=== PATIENT | male | born 1980 | race African-American/Black ===

== ENCOUNTER 2016-08-03 10:13 | Emergency (ER) | payer SELFPAY ==
[~2016-08-03] VITALS: Ht 190.5 cm; Wt 154.2 kg
[2016-08-03 10:15] VITALS: BP 144/98
[2016-08-03] MEDS ORDERED: CYCL10TA2 PO (10:52)
--- NOTE | 2016-08-03 10:53 | PHYS DOC ---
Past Medical History Past Medical History: Asthma Past Surgical History: Cholecystectomy Additional Information: 2 cigarettes daily Alcohol Use: Occasionally Drug Use: Marijuana Adult General Chief Complaint Chief Complaint: MECHANICAL FALL [facility] HPI Patient is a 36 year old male presents to the emergency department with a history of falling on the wet grass today. She states that he did hit his head although he denies any loss of consciousness. He denies any neck pain and breast pain or lumbar spine pain does have pain on bilateral lower back area. Patient denies any numbness or tingling down to her lower extremities. He denies any loss of bowel or bladder. Patient's able to ambulate with a good steady gait. Review of Systems Review of Systems Constitutional: Denies fever or chills [] Eyes: Denies change in visual acuity, redness, or eye pain [] HENT: Denies nasal congestion or sore throat [] Respiratory: Denies cough or shortness of breath [] Cardiovascular: No additional information not addressed in HPI [] GI: Denies abdominal pain, nausea, vomiting, bloody stools or diarrhea [] : Denies dysuria or hematuria [] Musculoskeletal: low back pain denies joint pain [] Integument: Denies rash or skin lesions [] Neurologic: Denies headache, focal weakness or sensory changes [] Allergies Allergies Allergies Coded Allergies Type Severity Reaction Last Updated Verified No Known Drug Allergies 07/09/15 No Physical Exam Physical Exam Constitutional: Well developed, well nourished, no acute distress, non-toxic appearance. [] HENT: Normocephalic, atraumatic, bilateral external ears normal, oropharynx moist, no oral exudates, nose normal. [] Eyes: PERRLA, EOMI, conjunctiva normal, no discharge. [] Neck: Normal range of motion, no tenderness, supple, no stridor. [] Cardiovascular:Heart rate regular rhythm, no murmur [] Lungs & Thorax: Bilateral breath sounds clear to auscultation [] Skin: Warm, dry, no erythema, no rash. [] Back: No cervical spine, thoracic spine or lumbar spine tenderness, no crepitus no deformities no step-offs noted. Extremities: No tenderness, no cyanosis, no clubbing, ROM intact, no edema. Patient was able to do straight leg raise without any difficulty. Patient was also able to cross legs with no difficulty. Patient with peripheral pulses 2+. Neurologic: Alert and oriented X 3, normal motor function, normal sensory function, no focal deficits noted. [] Psychologic: Affect normal, judgement normal, mood normal. [] Current Patient Data Vital Signs Vital Signs Date Time Temp Pulse Resp B/P Pulse Ox O2 Delivery O2 Flow Rate FiO2 08/03/16 10:15 98.2 81 20 144/98 97 Room Air 98.2 EKG EKG [] Radiology/Procedures Radiology/Procedures [] Course & Med Decision Making Course & Med Decision Making Pertinent Labs and Imaging studies reviewed. (See chart for details) Patient will be discharged home in stable condition signs symptoms to return back to emergency department been provided. Patient was encouraged to use ibuprofen that he has a home for pain and discomfort. He'll be provided with Flexeril for muscle spasms. He was instructed this medication will cause drowsiness do not take any be alert and oriented. Patient agrees with discharge instructions, treatment regimens and follow-up recommendations. Since symptoms to return back to emergency department provided. Dragon Disclaimer Dragon Disclaimer This electronic medical record was generated, in whole or in part, using a voice recognition dictation system. Departure Departure Impression: Primary Impression: Fall Additional Impression: Low back pain Disposition: 01 HOME, SELF-CARE Condition: STABLE Referrals: NO PCP (PCP) Patient Instructions: Back Exercises, [id number], Back Pain, Adult, Easy-to- Read, Fall Prevention and Home Safety, [id number] Additional Instructions: Activity as tolerated. Continue your ibuprofen you have at home for pain and discomfort. Flexeril as needed for muscle spasms this medication will cause drowsiness do not take any be alert and oriented. Ice packs on 20 minutes off 20 minutes several times a day. Follow-up to primary care physician next 7-10 days. Return back to emergency prior signs symptoms of become worse. Scripts Cyclobenzaprine Hcl 10 Mg [id number] Mg PO TID PRN MUSCLE SPASMS #30 TAB Prov:DAISY AVILA APRN 08/03/16 Problem Qualifiers DAISY AVILA APRN Aug 03, 2016 10:52
[2016-08-03] MEDS ORDERED: IBUPROFEN 800 MG TABLET. PO ONE ×2 (11:14→11:30)
[2016-08-03] MEDS ORDERED: CYCLOBENZAPRINE 10 MG TABLET. PO ONE (11:30)
== END 2016-08-03 11:14 | disposition home or self-care (01) ==
LOC: ER 10:13
DX: M54.5 Low back pain (principal); J45.909 Unspecified asthma, uncomplicated; F17.210 Nicotine dependence, cigarettes, uncomplicated; F12.10 Cannabis abuse, uncomplicated; Z90.49 Acquired absence of other specified parts of digestive tract; W19.XXXA Unspecified fall, initial encounter; Y93.89 Activity, other specified; Y99.8 Other external cause status; Y92.89 Other specified places as the place of occurrence of the external cause
CPT/HCPCS: 99284

== ENCOUNTER 2017-01-03 13:35 | Emergency (ER) | payer BC ==
[~2017-01-03] VITALS: Ht 190.5 cm; Wt 142.9 kg
[~2017-01-03 13:35] MED LIST: CYCL10TA2 PO
[2017-01-03 13:51] VITALS: BP 122/77
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
[2017-01-03] MEDS ORDERED: NAPROXEN 500 MG TABLET PO ONE (14:30)
[2017-01-03] MEDS ORDERED: CYCLOBENZAPRINE 10 MG TABLET. PO ONE (14:30)
[2017-01-03] MEDS ORDERED: TRAM-48 PO (14:30)
[2017-01-03] MEDS ORDERED: HYDROcodone/APAP 5/325MG 1 TAB TABLET PO ONE (14:30)
[2017-01-03] MEDS ORDERED: HYDR12.58 PO (14:30)
[2017-01-03] MEDS ORDERED: METH-37 PO (14:30)
== END 2017-01-03 14:41 | disposition home or self-care (01) ==
LOC: ER 13:35
DX: R60.0 Localized edema (principal); G89.29 Other chronic pain; M54.5 Low back pain; M79.671 Pain in right foot; J45.909 Unspecified asthma, uncomplicated
CPT/HCPCS: 99284

== ENCOUNTER 2018-10-02 22:37 | Emergency (ER) | payer BC, SELFPAY ==
[~2018-10-02] VITALS: Ht 190.5 cm; Wt 147.0 kg
[~2018-10-02 22:37] MED LIST changes: +HYDR12.58 PO; +METH-37 PO; +TRAM-48 PO
[2018-10-02 23:40] VITALS: BP 147/95
[2018-10-02] MEDS ORDERED: CYCL10TA2 PO (23:57)
[2018-10-02] MEDS ORDERED: HYDR-3164 PO (23:57)
--- NOTE | 2018-10-02 23:58 | PHYS DOC ---
Past Medical History Past Medical History: No Pertinent History, Asthma (MADAN PAREKH APRN) Past Surgical History: Cholecystectomy (MADAN PAREKH APRN) Smoking: Cigarettes, Less than 1pk/day Additional Information: 05/06-05/04 PPD Alcohol Use: Occasionally Drug Use: Marijuana (MADAN PAREKH APRN) Adult General Chief Complaint Chief Complaint: LOWER BACK PAIN OR INJURY HPI HPI Patient is a 38 year old who presents with right lower back pain that radiates down his right leg that started this morning. Patient had pain like this several years ago. Rates his pain as 10 out of 10 has not tried anything at home with exception ibuprofen. (MADAN PAREKH APRN) Review of Systems Review of Systems Constitutional: Denies fever or chills [] Eyes: Denies change in visual acuity, redness, or eye pain [] HENT: Denies nasal congestion or sore throat [] Respiratory: Denies cough or shortness of breath [] Cardiovascular: No additional information not addressed in HPI [] GI: Denies abdominal pain, nausea, vomiting, bloody stools or diarrhea [] : Denies dysuria or hematuria [] Musculoskeletal: Reports back pain that radiates down the lower leg denies joint pain [] Integument: Denies rash or skin lesions [] Neurologic: Denies headache, focal weakness or sensory changes [] Endocrine: Denies polyuria or polydipsia [] Complete systems were reviewed and found to be within normal limits, except as documented in this note. (MADAN PAREKH APRN) Current Medications Current Medications Current Medications Medications (Trade) Dose Ordered Sig/Goldy Start Time Stop Time Status Last Admin Dose Admin Acetaminophen/ Hydrocodone Bitart (Lortab 5/325) 1 tab 1X ONCE 10/03/18 00:00 10/03/18 00:01 DC 10/03/18 00:03 1 TAB Cyclobenzaprine HCl (Flexeril) 10 mg 1X ONCE 10/03/18 00:00 10/03/18 00:01 DC 10/03/18 00:03 10 MG ([place] ATWOOD MD) Allergies Allergies Allergies Coded Allergies Type Severity Reaction Last Updated Verified No Known Drug Allergies 07/09/15 No (NY ATWOOD MD) Physical Exam Physical Exam Constitutional: Well developed, well nourished, no acute distress, non-toxic appearance. [] HENT: Normocephalic, atraumatic, bilateral external ears normal, oropharynx moist, no oral exudates, nose normal. [] Eyes: PERRLA, EOMI, conjunctiva normal, no discharge. [] Neck: Normal range of motion, no tenderness, supple, no stridor. [] Cardiovascular:Heart rate regular rhythm, no murmur [] Lungs & Thorax: Bilateral breath sounds clear to auscultation [] Abdomen: Bowel sounds normal, soft, no tenderness, no masses, no pulsatile mass es. [] Skin: Warm, dry, no erythema, no rash. [] Back: Tenderness Right lower back, no CVA tenderness. [] Extremities: No tenderness, no cyanosis, no clubbing, ROM intact, no edema. [] Neurologic: Alert and oriented X 3, normal motor function, normal sensory function, no focal deficits noted. [] Psychologic: Affect normal, judgement normal, mood normal. [] (MADAN PAREKH APRN) Current Patient Data Vital Signs Vital Signs Date Time Temp Pulse Resp B/P (MAP) Pulse Ox O2 Delivery O2 Flow Rate FiO2 10/03/18 00:03 Room Air 10/02/18 23:40 98.3 64 20 98 98.3 (NY ATWOOD MD) EKG EKG [] (MADAN PAREKH APRN) Radiology/Procedures Radiology/Procedures [] (MADAN PAREKH APRN) Course & Med Decision Making Course & Med Decision Making Pertinent Labs and Imaging studies reviewed. (See chart for details) Appears to have sciatica. Will give [place] and Flexeril here in ER. Will d/c home with scripts. Patient is agreeable. (MADAN PAREKH APRN) Course & Med Decision Making Staff Physician Addendum: I was working in the ER during the course of this patient's visit. I was available for consultation as needed, but I was not directly involved in the care of this patient. (NY ATWOOD MD) Dragon Disclaimer Dragon Disclaimer This electronic medical record was generated, in whole or in part, using a voice recognition dictation system. (MADAN PAREKH APRN) Departure Departure Impression: Primary Impression: Sciatic leg pain Disposition: HOME, SELF-CARE Condition: STABLE Referrals: NO PCP (PCP) Patient Instructions: Sciatica, Sciatica with [facility] Additional Instructions: Follow up with your primary care doctor as needed. Take medications as prescribed. Come back to ER if needed. Scripts Cyclobenzaprine Hcl (CYCLOBENZAPRINE HCL) 10 Mg Tablet 1 TAB PO TID PRN for MUSCLE SPASMS, #30 TAB Prov: MADAN PAREKH APRN 10/02/18 Hydrocodone/Apap 5-325 (NORCO 5-325 TABLET) 1 Each Tablet 1 TAB PO PRN Q6HRS PRN for PAIN, #10 TAB 0 Refills Prov: MADAN PAREKH APRN 10/02/18 MADAN PAREKH APRN Oct 02, 2018 23:57 [place] ATWOOD MD Oct 04, 2018 01:38
[2018-10-03] MEDS ORDERED: CYCLOBENZAPRINE 10 MG TABLET. PO ONE
[2018-10-03] MEDS ORDERED: HYDROcodone/APAP 5/325MG 1 TAB TABLET PO ONE
== END 2018-10-03 00:10 | disposition home or self-care (01) ==
LOC: ER 22:37
DX: M54.41 Lumbago with sciatica, right side (principal); J45.909 Unspecified asthma, uncomplicated; F17.210 Nicotine dependence, cigarettes, uncomplicated; Z90.49 Acquired absence of other specified parts of digestive tract
CPT/HCPCS: 99283